=== PATIENT | female | born 1965 | race Caucasian/White ===

== ENCOUNTER 2016-12-01 09:48 | Outpatient (CLI) | END 2016-12-01 09:49 | disposition home or self-care (01) | LOC: RAD 09:48 | PROVIDERS: ATTEND Internal Medicine | DX: N64.89 Other specified disorders of breast (principal) ==

== ENCOUNTER 2017-06-23 15:49 | Outpatient (CLI) ==
--- NOTE | 2017-06-23 16:30 | US ---
EXAM: Right lower extremity venous Doppler History: Right lower extremity pain and swelling. Technique: Multiple sonographic images through the right lower extremity were obtained. Color dupl ex Doppler was used to interrogate vascular flow. Findings: The right common femoral, greater saphenous, profunda, femoral, popliteal, peroneal, post erior tibial and anterior tibial veins demonstrate spontaneous flow with normal compression and norm al augmentation. Right lower extremity subcutaneous edema Impression: No sonographic evidence for deep venous thrombosis.
== END 2017-06-23 15:50 | disposition home or self-care (01) ==
LOC: RAD 15:49
PROVIDERS: ATTEND Internal Medicine
DX: M79.604 Pain in right leg (principal); M79.89 Other specified soft tissue disorders

== ENCOUNTER 2017-08-04 08:32 | Outpatient (RCR) ==
--- NOTE | 2017-08-11 11:33 | RS.OPPTEV2 ---
Date of Note: 08/04/17 Visit #: 1 Date of Evaluation: 08/04/17 Payer Source: Insurance Treatment Diagnosis: Right knee pain History of Condition/Mechanism of Injury:: Patient reports progressive right knee pain. Prior Level of Function.....Patient was independent with: ADL's, Self Care, Work /Vocation, Caregiving, Ambulation/Mobility, Community Integration/Access Functional Limitations: Standing, Squatting, Ambulation, Community Access/ Integration Current Subjective/complaints:: Patient reports pain and instability in the right knee. States she does not have confidence in the knee with descending stairs or inclines. She wears a knee support at work. Patient requests to get exercises to just perform at home. Treatment Side (optional): Right Medical History Medical History: Hypertension, COPD, Diabetes, Arthritis (bilateral knee joints) Smoking Status: Former smoker Hx Home Medications: ASA, gabapentin, venlafaxine, voltaren, metformin Patient's Goals: Her goal is to gain strength and stability in the right knee joint. Functional Outcome Measure - G Codes & Severity Modifier G Codes & Modifier: NA Source of G Code score: NA Gait - Gait Pattern Gait Comments: Patient ambulates without an assistive device with decreased stance on the right LE. Demonstrates decreased right heel strike and lacks for extension during foot flat. - Left Knee ROM Left Knee Extension: +2 hyperextension Left Knee Flexion: 135 (degrees AROM) - Right Knee ROM Right Knee Extension: +1 hyperextension Right Knee Flexion: 134 (degrees AROM) - Left Knee Strength Left Knee Extension: 5 Normal Left Knee Flexion: 5 Normal - Right Knee Strength Right Knee Extension: 4 Good Right Knee Flexion: 4 Good Sensation - Sensation Right Lower Extremity: Intact/Normal Left Lower Extremity: Intact/Normal Interventions - Exercise/Activities/Manual Therapy Exercises/Activities: Patient instructed in HEP: isometric hip adduction, SAQ's , and resisted SLR in standing in all 4 directions with green theraband. Manual Therapy: NA HOME EXERCISE PROGRAM: isometric hip adduction, SAQ's, and resisted SLR in standing in all 4 directions with green theraband. - Charges Total Direct Minutes: 30 mins Total Treatment Time: 30 mins Procedures billed for this date of service:: MIRELA Michele Assessment Assessment: Patient presents to therapy with a diagnosis of right knee pain and instability. She requests to work on exercises on her own at home. She exhibits hypermobility with AROM on both knees. Right knee strength is generally weaker compared to the left. She will benefit from strengthening exercises to improve knee stability. Patient Education: Education of diagnosis, Body/Joint mechanics, Home Exercise Program, Education of Plan of Care Rehab Potential: Good Head Of It Goals Goal #1: Pt independent with HEP. Goal to be met by: 08/04/17 Progress towards goal: Met Plan - Treatment to be Provided Procedures: Therapeutic Exercises Modalities: No Modalities - Treatment Plan Frequency: Evaluation only Duration: One time treatment ORDER # VISITS AND/OR THROUGH DATE: 08/04/17 - Treatment Code (1) Knee pain Code(s): M25.569 - PAIN IN UNSPECIFIED KNEE Qualifiers: Chronicity: chronic Laterality: right Qualified Code(s): M25.561 - Pain in right knee; G89.29 - Other chronic pain (2) Instability of right knee joint Code(s): M25.361 - OTHER INSTABILITY, RIGHT KNEE Comments: M25.361
== END 2017-08-20 ==
PROVIDERS: ATTEND Orthopaedic Surgery
DX: M17.11 Unilateral primary osteoarthritis, right knee (principal); M25.561 Pain in right knee; M25.361 Other instability, right knee

== ENCOUNTER 2017-10-25 06:36 | Day surgery (SDC) ==
[2017-10-25] MEDS ORDERED: DIPRIVAN 20 ML VIAL IVP ONE (08:49)
[2017-10-25] MEDS ORDERED: VERSED ONE (08:49)
[2017-10-25 10:34] VITALS: BP 131/83; TEMP 97.3
--- NOTE | 2017-10-26 11:48 | OP ---
INDICATIONS FOR PROCEDURE: 52-year-old female presents for a screening colonoscopy exam. MEDICATIONS: SEE ANESTHESIA NOTES. PROCEDURE: COLONOSCOPY, SCREENING. REPORT: The risks, benefits, alternatives and limitations were discussed in detail with the patient. Informed consent was obtained. After adequate sedation was achieved, a digital rectal exam revealed good tone, no masses. The colonoscope was introduced into the rectum and advanced under direct visual guidance to the cecum. The cecum was identified by the appendiceal orifice and IC valve. I then slowly withdrew the scope in a circumferential manner examining the mucosa quite carefully. I looked on the proximal and distal side of folds and flexures as best as possible. I was able to retroflex the scope in the right colon and left colon to increase visualization. In the left colon there were multiple small mouth diverticula scattered throughout the sigmoid. On retroflex view of the anal canal there is a nonengorged internal hemorrhoid. The prep was good. The withdrawal time was 9 minutes and 24 seconds. The patient tolerated the procedure well with stable vital signs and pulse oximetry throughout. IMPRESSION: 1. SIGMOID DIVERTICULOSIS 2. NONENGORGED INTERNAL HEMORRHOID RECOMMENDATIONS: 1. High fiber diet 2. Office visit as needed 3. Consider colon screening examination again in 10 years, sooner if there are any signs, symptoms to indicate otherwise CC: DR. TOM FARR
== END 2017-10-25 10:15 | disposition home or self-care (01) ==
LOC: SURG 06:36
PROVIDERS: ATTEND Internal Medicine Gastroenterology
DX: Z12.11 Encounter for screening for malignant neoplasm of colon (principal); K57.30 Diverticulosis of large intestine without perforation or abscess without bleeding; K64.8 Other hemorrhoids

== ENCOUNTER 2018-09-05 13:29 | Outpatient (CLI) ==
--- NOTE | 2018-09-06 10:04 | MAMMO ---
EXAM: Digital screening mammogram with tomosynthesis HISTORY: Screening COMPARISON: 09/16/2015 FINDINGS: Digital MLO and CC views of the right and left breast were performed. Tomosynthesis was performed. Computer aided detection utilized. There are scattered fibroglandular densities. There is no evidence for mass, asymmetry, distortion, or suspicious calcifications in either breast. IMPRESSION: 1. No evidence of malignancy in the right or left breast. 2. Annual screening mammogram is recommended in one year. BIRADS category 1, negative examination
== END 2018-09-05 13:30 | disposition home or self-care (01) ==
LOC: RAD 13:29
PROVIDERS: ATTEND Internal Medicine
DX: Z12.31 Encounter for screening mammogram for malignant neoplasm of breast (principal)
CPT/HCPCS: 77067